=== PATIENT | female | born 1975 | race Caucasian/White ===

== ENCOUNTER 2022-12-25 16:40 | Observation (INO) ==
[2022-12-25] MEDS ORDERED: LABETALOL HCL IV 5 MG/ML 20ML IV STA (16:51)
[2022-12-25] MEDS ORDERED: SODIUM CHLORIDE 0.9% 1000ML 1,000 ML IV STA (16:51)
--- NOTE | 2022-12-25 16:56 | Emergency Department Note ---
Impression & Plan Pre-eclampsia in period ED Provider Note HISTORY OF PRESENT ILLNESS: Patient is a 47-year-old female presenting with hypertension. Patient had a vaginal delivery on 12/19/2022 with [facility] obstetric[facility]. She had had elevated blood pressure readings postdelivery and was given magnesium for seizure prophylaxis. She was never started on any blood pressure medications. She did blood pressure check at OB clinic today and it was found to be elevated and she was referred to the emergency department for further evaluation. Patient reports that she was doing well prior to discharge in the hospital, but for the last few days since being home her blood pressure readings have been elevated. She went to her primary doctor's office 2 days ago and was instructed to follow-up with OB. She had a blood pressure check with OB today and was found to be elevated and was referred to the emergency department. Patient states she has been having a "whooshing" sensation in her ears. Reports bilateral lower extremity edema ongoing for the last week. Denies any chest pain, shortness of breath, nausea or vomiting. Denies any abdominal pain. Reports some trace vaginal spotting but no heavy bleeding or discharge ROS: as above PHYSICAL EXAM: Constitutional: Patient appears in no acute distress. HENT: Head: Normocephalic and atraumatic. Eyes: EOMI, PERRL Mouth/Throat: Mucous membranes moist. Neck: Trachea midline. Neck supple. Cardiovascular: RRR, No murmurs, rubs or gallops. Intact distal pulses. Pulmonary/Chest: No respiratory distress. Breath sounds clear and equal bilaterally. No wheezes or rales. Abdominal: BS +. Abdomen soft, no tenderness, rebound or guarding. Musculoskeletal: No tenderness or deformity noted. Trace non-pitting edema bilaterally Skin: Warm and dry. No rash, erythema, pallor or cyanosis Psychiatric: Appropriate mood and affect for situation. Neurological: Alert and keenly responsive. CN II-XII grossly intact, moving all extremities equally and fully. MDM: - Vitals signs showed hypertension and tachycardia. - History obtained via patient. Patient presents with elevated blood pressure. Patient reports she just gave a week ago. She had high blood pressure and was discharged on magnesium. She reports she had multiple blood pressure checks and went today was noted to be hypertensive and was sent to the ER for further evaluation. She reports no chest pain or shortness of breath. Denies any recent fevers - Chronic conditions affecting care: none - Differential diagnoses include, but are not limited to: preeclampsia; anemia; electrolyte abnormality; ACS - Order placed for continuous cardiac monitoring. At this time, monitor showed rate of 90 bpm with normal sinus rhythm, per my interpretation. - External medical records reviewed. Patient's [facility] documentation was reviewed. During her inpatient hospital stay she was noted to have elevated AST and ALT. She was not started on any antihypertensives postdelivery. She had a blood pressure check today in clinic and was found to be 140s over 80s and was referred to the emergency department for further evaluation - EKG reviewed by myself showed normal sinus rhythm. Rate tachycardic at 105 bpm. QTc 438. No acute ischemic changes - Laboratory workup interpreted by myself showed normal WBC; anemia (Hgb 8.2 - w as 7.8 on 12/20/22); stable electrolytes other than hypocalcemia (Ca 8.1); normal creatinine; normal troponin; slightly elevated ALT (66). - Labs from 12/23/2022 reviewed and patient had transaminitis - AST 163; ALT 160. - UA negative for infection. Noted to have blood. - Patient given 1L NS and 10 mg IV labetalol. Multiple repeat blood pressures down to 120s systolic. - Discussed case with [facility] OB environmental protection officer. Will come and evaluate patient. Plan to admit to OB for further monitoring. - Patient admitted to [facility] OB service for further evaluation and management. ASSESSMENT AND PLAN: Diagnosis: preeclampsia Plan: admit Past Med/Surg History Social History Smoking Status: Never smoker Feels Safe at Home: Yes Allergies Allergies Allergy/AdvReac Type Severity Reaction Status Date / Time No Known Allergies Allergy Mild Unverified 03/11/10 07:59 Home Meds Home Medications Medication Instructions Recorded Confirmed No Known Home Medications 12/25/22 12/25/22 Results & Data (ED) Vital Signs Vital Signs - 24 hr 12/25/22 16:47 12/25/22 17:13 12/25/22 17:06 Pulse Rate 114 H 94 H 110 H Pulse Rate from SpO2 Sensor Respiratory Rate 15 14 Blood Pressure 170/109 H 143/84 H 176/107 H Blood Pressure Mean 129 130 Pulse Oximetry 100 100 Oxygen Delivery Method Room Air Room Air Sepsis Recent Fever Within 48 Hours No Sepsis New/Unexplained Change in Mental Status No Sepsis Action Taken by Nursing No Action Required 12/25/22 17:19 12/25/22 17:14 12/25/22 17:20 Pulse Rate 103 H 99 H 87 Pulse Rate from SpO2 Sensor Respiratory Rate 20 20 Blood Pressure 143/84 H 128/77 Blood Pressure Mean 103 94 Pulse Oximetry 99 100 Oxygen Delivery Method Room Air Room Air Sepsis Recent Fever Within 48 Hours Sepsis New/Unexplained Change in Mental Status Sepsis Action Taken by Nursing 12/25/22 17:34 12/25/22 17:34 12/25/22 17:45 Pulse Rate 85 85 84 Pulse Rate from SpO2 Sensor Respiratory Rate 24 12 Blood Pressure 125/82 125/82 123/76 Blood Pressure Mean 96 91 Pulse Oximetry 98 100 Oxygen Delivery Method Room Air Room Air Sepsis Recent Fever Within 48 Hours Sepsis New/Unexplained Change in Mental Status Sepsis Action Taken by Nursing 12/25/22 17:59 12/25/22 18:00 12/25/22 18:30 Pulse Rate 90 89 89 Pulse Rate from SpO2 Sensor 83 Respiratory Rate 29 H 21 20 Blood Pressure 128/80 123/77 Blood Pressure Mean 99 92 Pulse Oximetry 98 100 100 Oxygen Delivery Method Room Air Room Air Sepsis Recent Fever Within 48 Hours Sepsis New/Unexplained Change in Mental Status Sepsis Action Taken by Nursing 12/25/22 19:00 12/25/22 19:30 12/25/22 20:00 Pulse Rate 90 97 H 91 H Pulse Rate from SpO2 Sensor Respiratory Rate 24 27 H 18 Blood Pressure 140/88 149/94 H 135/84 Blood Pressure Mean 105 112 101 Pulse Oximetry 97 99 99 Oxygen Delivery Method Room Air Room Air Room Air Sepsis Recent Fever Within 48 Hours Sepsis New/Unexplained Change in Mental Status Sepsis Action Taken by Nursing Laboratory Data 12/25/22 17:07 12/25/22 17:07 Lab Results 12/25/22 12/25/22 12/25/22 Range/Units 17:07 17:07 17:22 WBC 9.71 (4.8-10.8) K/ul RBC 2.41 L (4.20-5.40) M/uL Hgb 8.2 L (12.0-16.0) g/dl Hct 24.3 L (37.0-47.0) % MCV 100.8 H (80.0-100.0) fL MCH 34.0 (25.0-34.0) pg MCHC 33.7 (32.0-36.0) g/dL RDW Std Deviation 51.5 H (36.4-46.3) fL RDW Coeff of Micheal 14.6 H (11.5-14.5) % Plt Count 390 (130-400) K/uL MPV 9.5 (9.4-12.4) fL Immature Gran % (Auto) 4.8 % Neut % (Auto) 58.5 % Lymph % (Auto) 24.9 % [place] % (Auto) 9.9 % Eos % (Auto) 1.3 % Baso % (Auto) 0.6 % Neut # (Auto) 5.67 (1.40-6.50) K/uL Lymph # (Auto) 2.42 (1.2-3.4) K/uL [place] # (Auto) 0.96 H (0.11-0.59) K/uL Eos # (Auto) 0.13 (0-0.50) K/uL Baso # (Auto) 0.06 (0-0.2) K/uL Immature Gran # (Auto) 0.47 H (0.01-0.20) K/uL Absolute Nucleated RBC 0.08 (0-0.12) K/uL Nucleated RBC % (auto) 0.8 % Sodium 139 (136-145) mmol/L Potassium 3.8 (3.5-5.1) mmol/L Chloride 109 H (98-107) mmol/L Carbon Dioxide 23 (21-32) mmol/L Anion Gap 7 (3-11) BUN 14 (6-23) mg/dl Creatinine 0.78 (0.6-1.2) mg/dl Est Cr Clr Drug Dosing Not Reportable Est GFR ( Amer) 106.4 ml/min Est GFR (Non-Af Amer) 91.8 ml/min BUN/Creatinine Ratio 17.9 (10-20) Glucose 126 H (70-99(Fasting)) mg/dl Calcium 8.1 L (8.6-10.3) mg/dl Magnesium 1.9 (1.7-2.4) mg/dl Total Bilirubin 0.3 (0.2-1.0) mg/dl AST 35 (13-39) U/L ALT 66 H (7-52) U/L Alkaline Phosphatase 114 H (34-104) U/L Troponin I High Sens 7.8 (0-14) pg/ml Total Protein 6.1 (6.0-8.3) gm/dl Albumin 3.4 (3.4-5.0) gm/dl Globulin 2.7 (2.5-4.0) gm/dl Albumin/Globulin Ratio 1.3 (0.9-2) Urine Color Urine Appearance (Clear) Urine pH (4.5-7.5) Ur Specific [place] (1.000-1.030) Urine Protein (Negative) Urine Glucose (UA) (Negative) Urine Ketones (Negative) Urine Blood (Negative) Urine Nitrite (Negative) Urine Bilirubin (Negative) Urine Urobilinogen (Negative) Ur Leukocyte Esterase (Negative) Urine WBC (Auto) (0-5) /hpf Urine RBC (Auto) (0-4) /hpf U Hyaline Cast (Auto) (0-5) /lpf U Epithel Cells (Auto) (0-5) /lpf Urine Bacteria (Auto) (Negative) SARS-CoV-2, RNA, NAAT NEGATIVE (NEGATIVE) 12/25/22 Range/Units 17:33 WBC (4.8-10.8) K/ul RBC (4.20-5.40) M/uL Hgb (12.0-16.0) g/dl Hct (37.0-47.0) % MCV (80.0-100.0) fL MCH (25.0-34.0) pg MCHC (32.0-36.0) g/dL RDW Std Deviation (36.4-46.3) fL RDW Coeff of Micheal (11.5-14.5) % Plt Count (130-400) K/uL MPV (9.4-12.4) fL Immature Gran % (Auto) % Neut % (Auto) % Lymph % (Auto) % [place] % (Auto) % Eos % (Auto) % Baso % (Auto) % Neut # (Auto) (1.40-6.50) K/uL Lymph # (Auto) (1.2-3.4) K/uL [place] # (Auto) (0.11-0.59) K/uL Eos # (Auto) (0-0.50) K/uL Baso # (Auto) (0-0.2) K/uL Immature Gran # (Auto) (0.01-0.20) K/uL Absolute Nucleated RBC (0-0.12) K/uL Nucleated RBC % (auto) % Sodium (136-145) mmol/L Potassium (3.5-5.1) mmol/L Chloride (98-107) mmol/L Carbon Dioxide (21-32) mmol/L Anion Gap (3-11) BUN (6-23) mg/dl Creatinine (0.6-1.2) mg/dl Est Cr Clr Drug Dosing Est GFR ( Amer) ml/min Est GFR (Non-Af Amer) ml/min BUN/Creatinine Ratio (10-20) Glucose (70-99(Fasting)) mg/dl Calcium (8.6-10.3) mg/dl Magnesium (1.7-2.4) mg/dl Total Bilirubin (0.2-1.0) mg/dl AST (13-39) U/L ALT (7-52) U/L Alkaline Phosphatase (34-104) U/L Troponin I High Sens (0-14) pg/ml Total Protein (6.0-8.3) gm/dl Albumin (3.4-5.0) gm/dl Globulin (2.5-4.0) gm/dl Albumin/Globulin Ratio (0.9-2) Urine Color Yellow Urine Appearance Clear (Clear) Urine pH 6.0 (4.5-7.5) Ur Specific [place] 1.018 (1.000-1.030) Urine Protein Negative (Negative) Urine Glucose (UA) Negative (Negative) Urine Ketones Negative (Negative) Urine Blood 3+ H (Negative) Urine Nitrite Negative (Negative) Urine Bilirubin Negative (Negative) Urine Urobilinogen Negative (Negative) Ur Leukocyte Esterase Trace H (Negative) Urine WBC (Auto) 1-5 (0-5) /hpf Urine RBC (Auto) >30 H (0-4) /hpf U Hyaline Cast (Auto) 1-5 (0-5) /lpf U Epithel Cells (Auto) 5-10 H (0-5) /lpf Urine Bacteria (Auto) Negative (Negative) SARS-CoV-2, RNA, NAAT (NEGATIVE) Administered Medications Discontinued Medications Sodium Chloride (Nss 1000ml) 1,000 mls @ 999 mls/hr IV .Q1H1M STA Stop: 12/25/22 17:51 Last Infusion: 12/25/22 18:14 Dose: 0 mls/hr Documented By: Admin: 12/25/22 17:13 Dose: 999 mls/hr Documented By: ANNABELLE Labetalol HCl (Labetalol Hcl Iv 5 Mg/Ml 20ml) 10 mg IV NOW STA Stop: 12/25/22 16:52 Last Admin: 12/25/22 17:13 Dose: 10 mg Documented By: ANNABELLE Co-signed By: CELY Discharge Plan Visit Data Chief Complaint: Abnormal Labs/Diagnostic Testing Stated Complaint: REF BY DOC,REDO BLOOD WORK ED Provider: Janina Yañez Discharge Problem: Pre-eclampsia in period Forms Stand Alone Forms: [facility] Prescriptions Prescriptions: No Action No Known Home Medications Referrals Referrals: Chris Mcmanus MD [Physician] -
[2022-12-25 17:34] LABS: Basophils # (auto) 0.06 K/uL (0-0.2); Basophils % (auto) 0.6 %; Eosinophils # (auto) 0.13 K/uL (0-0.50); Eosinophils % (auto) 1.3 %; Hematocrit (blood only) 24.3 % (37.0-47.0); Hemoglobin 8.2 g/dl (12.0-16.0); Immature Granulocytes # (auto) 0.47 K/uL (0.01-0.20); Immature Granulocytes % (auto) 4.8 %; Lymphocytes # (auto) 2.42 K/uL (1.2-3.4); Lymphocytes % (auto) 24.9 %; Mean Corpuscular Hgb Conc 33.7 g/dL (32.0-36.0); Mean Corpuscular Volume 100.8 fL (80.0-100.0); Mean Platelet Volume 9.5 fL (9.4-12.4); Monocytes # (auto) 0.96 K/uL (0.11-0.59); Monocytes % (auto) 9.9 %; Neutrophils # (auto) 5.67 K/uL (1.40-6.50); Neutrophils % (auto) 58.5 %; Nucleated RBC # (auto) 0.08 K/uL (0-0.12); Nucleated RBC % (auto) 0.8 %; Platelet Count 390 K/uL (130-400); RDW Coefficient of Variation 14.6 % (11.5-14.5); RDW Standard Deviation 51.5 fL (36.4-46.3); Red Blood Count 2.41 M/uL (4.20-5.40); White Blood Count 9.71 K/ul (4.8-10.8)
[2022-12-25 17:41] LABS: Alanine Aminotransferase 66 U/L (7-52); Albumin Globulin Ratio 1.3 (0.9-2); Albumin Level 3.4 gm/dl (3.4-5.0); Alkaline Phosphatase 114 U/L (34-104); Anion Gap 7 (3-11); Aspartate Aminotransferase 35 U/L (13-39); BUN Creatinine Ratio 17.9 (10-20); Bilirubin,Total 0.3 mg/dl (0.2-1.0); Blood Urea Nitrogen 14 mg/dl (6-23); Calcium 8.1 mg/dl (8.6-10.3); Carbon Dioxide 23 mmol/L (21-32); Chloride 109 mmol/L (98-107); Est GFR (African American) 106.4 ml/min; Est GFR (Non-African American) 91.8 ml/min; Globulin 2.7 gm/dl (2.5-4.0); Glucose 126 mg/dl (70-99(Fasting)); Magnesium 1.9 mg/dl (1.7-2.4); Potassium 3.8 mmol/L (3.5-5.1); Sodium 139 mmol/L (136-145); Total Protein 6.1 gm/dl (6.0-8.3)
[2022-12-25 17:46] LABS: Troponin I High Sensitivity 7.8 pg/ml (0-14)
[2022-12-25 17:53] LABS: Appearance Urine Clear (Clear); Bacteria Urine Automated Negative (Negative); Bilirubin Urine Negative (Negative); Blood Urine 3+ (Negative); Color Urine Yellow; Glucose Urine UA Negative (Negative); Ketones Urine Negative (Negative); Leukocyte Esterase Urine Trace (Negative); Nitrite Urine Negative (Negative); Protein Urine Negative (Negative); RBC Urine Automated >30 /hpf (0-4); Specific Gravity Urine 1.018 (1.000-1.030); Urobilinogen Urine Negative (Negative)
[2022-12-25] MEDS ORDERED: LIDOCAINE 1% LOCAL 20 ML VIAL INFIL PRN (19:53)
[2022-12-25] MEDS ORDERED: LACTATED RINGER'S 1,000 ML IV PRN (19:56)
--- NOTE | 2022-12-25 20:26 | History & Physical Report ---
Date of Service December 25, 2022 Assessment & Plan (1) Preeclampsia: Plan: 1. Preeclampsia. diagnosed and treated with magnesium on 12/19/22. [facility] labs today are unremarkable except for slight elevation of ALT. Patient has no protein in urine today. . Patient is seen in the emergency room today with headaches and elevated blood pressures which have improved with IV labetalol. I have therefore offered patient admission and observation for 24 hours to start on labetalol p.o. meds and monitor blood pressures Patient has agreed to plan and treatment Plan as above History of Present Illness Chief Complaint: Headache Primary Care Provider: Sabino Benites DO This is a 47-year-old 2 para 2 who delivered on December 19 2022 at [facility]. Patient went down to [place] for scheduled induction of labor for attempted vaginal after the . On day of admission she was found to have elevated blood pressures. She was worked up and diagnosed with preeclampsia. He received treatment for preeclampsia including magnesium f or 24 hours. Patient delivered vaginally and was discharged home on 12/21/2022. Patient reports post delivery blood pressure was improved and was taken off magnesium and labs improved as well and was discharged home on no medications for her blood pressure. Patient reports headaches in the last 3 days since she has been home. She reports a throbbing headache. No nausea or vomiting no right upper quadrant pain or visual changes. On December 23 patient was seen by primary care physician blood pressures were elevated and so primary care physician contacted OB on-call. Labs were normal so patient was discharged home scheduled for office on 12/25/2022. Today in the office patient was seen and sent to the emergency room emergency room she was seen by the ED physician. On arrival to the emergency room her blood pressures were in the 170s over 110s she received IV labetalol labetalol 10 mg. Blood pressures improved to 140s over 90s. CBC and complete chemistries are ordered and reviewed in the emergency room today. Patient has minimally elevated ALT.the rest of her preeclamptic labs are normal including no protein in the urine. Past medical history allergies social family history is reviewed. Allergies Allergy/AdvReac Type Severity Reaction Status Date / Time No Known Allergies Allergy Mild Unverified 03/11/10 07:59 Home Medications Medication Instructions Recorded Confirmed Type No Known Home Medications 12/25/22 12/25/22 History Past Med/Surg History Social History Smoking Status: Never smoker Feels Safe at Home: Yes Results & Data Results & Data Vital Signs (Past 12 Hours) Vital Signs Pulse Resp BP Pulse Ox O2 Del Method 12/25/22 19:30 97 H 27 H 149/94 H 99 Room Air 12/25/22 19:00 90 24 140/88 97 Room Air 12/25/22 18:30 89 20 123/77 100 Room Air 12/25/22 18:00 89 21 128/80 100 Room Air 12/25/22 17:59 90 29 H 98 12/25/22 17:45 84 12 123/76 100 Room Air 12/25/22 17:34 85 24 125/82 98 Room Air 12/25/22 17:34 85 125/82 12/25/22 17:20 87 20 128/77 100 Room Air 12/25/22 17:14 99 H 20 143/84 H 99 Room Air 12/25/22 17:19 103 H 12/25/22 17:06 110 H 14 176/107 H 100 Room Air 12/25/22 17:13 94 H 143/84 H 12/25/22 16:47 114 H 15 170/109 H 100 Room Air Code Status & VTE Plan VTE Prophylaxis Plan VTE Prophylaxis will be ordered: Yes
[2022-12-25] MEDS: LABETALOL HCL 100 MG TAB PO SCH (21:54)
[2022-12-25] MEDS: IBUPROFEN 600 MG TAB PO PRN (22:05)
[2022-12-26 06:12] LABS: Hematocrit (blood only) 21.7 % (37.0-47.0); Hemoglobin 7.4 g/dl (12.0-16.0); Mean Corpuscular Hemoglobin 33.9 pg (25.0-34.0); Mean Corpuscular Hgb Conc 34.1 g/dL (32.0-36.0); Mean Corpuscular Volume 99.5 fL (80.0-100.0); Mean Platelet Volume 9.3 fL (9.4-12.4); Nucleated RBC # (auto) 0.06 K/uL (0-0.12); Nucleated RBC % (auto) 0.9 %; Platelet Count 352 K/uL (130-400); RDW Coefficient of Variation 15.3 % (11.5-14.5); RDW Standard Deviation 52.8 fL (36.4-46.3); Red Blood Count 2.18 M/uL (4.20-5.40); White Blood Count 6.98 K/ul (4.8-10.8)
[2022-12-26] MEDS: IBUPROFEN 600 MG TAB PO PRN (06:18)
[2022-12-26 06:29] LABS: Alanine Aminotransferase 47 U/L (7-52); Albumin Globulin Ratio 1.3 (0.9-2); Alkaline Phosphatase 109 U/L (34-104); Anion Gap 4 (3-11); Aspartate Aminotransferase 24 U/L (13-39); Bilirubin,Total 0.3 mg/dl (0.2-1.0); Blood Urea Nitrogen 12 mg/dl (6-23); Calcium 7.8 mg/dl (8.6-10.3); Carbon Dioxide 23 mmol/L (21-32); Chloride 113 mmol/L (98-107); Est GFR (African American) 125.6 ml/min; Est GFR (Non-African American) 108.3 ml/min; Globulin 2.4 gm/dl (2.5-4.0); Glucose 70 mg/dl (70-99(Fasting)); Sodium 140 mmol/L (136-145); Total Protein 5.4 gm/dl (6.0-8.3)
[2022-12-26 06:47] LABS: Basophils # (auto) 0.05 K/uL (0-0.2); Basophils % (auto) 0.7 %; Eosinophils % (auto) 1.4 %; Immature Granulocytes # (auto) 0.36 K/uL (0.01-0.20); Immature Granulocytes % (auto) 5.2 %; Lymphocytes # (auto) 1.89 K/uL (1.2-3.4); Lymphocytes % (auto) 27.1 %; Monocytes # (auto) 0.81 K/uL (0.11-0.59); Monocytes % (auto) 11.6 %; Neutrophils # (auto) 3.77 K/uL (1.40-6.50); Polychromasia 1+
--- NOTE | 2022-12-26 06:54 | Obstetrical Progress Note ---
Date of Service December 26, 2022 Assessment & Plan (1) Preeclampsia: Plan: Pt doing well Improved headache stable BP on labetalol 100mg BID LFT is nml Admission and Anticipated Discharge Date Admission Date: December 25, 2022 Results & Data Vital Signs (Past 12 Hours) Vital Signs Temp Pulse Pulse Pulse Resp BP BP 12/26/22 06:15 18 12/26/22 03:35 16 12/25/22 22:30 18 12/25/22 22:08 37.0 C 88 20 183/86 H 12/26/22 06:38 80 138/66 12/26/22 05:26 70 130/60 12/26/22 04:26 73 122/56 L 12/26/22 03:35 16 12/26/22 03:35 37.1 C 16 12/26/22 03:26 81 103/51 L 12/26/22 02:26 88 107/52 L 12/26/22 01:26 90 104/52 L 12/26/22 00:33 83 122/59 L 12/26/22 00:26 84 159/53 H 12/25/22 23:25 83 120/68 12/25/22 22:28 75 140/80 12/25/22 21:50 37.0 C 88 20 183/86 H 12/25/22 21:13 86 16 153/102 H 12/25/22 20:00 91 H 18 135/84 12/25/22 19:30 97 H 27 H 149/94 H 12/25/22 19:00 90 24 140/88 Pulse Ox O2 Del Method 12/26/22 06:15 12/26/22 03:35 12/25/22 22:30 12/25/22 22:08 Room Air 12/26/22 06:38 12/26/22 05:26 12/26/22 04:26 12/26/22 03:35 12/26/22 03:35 12/26/22 03:26 12/26/22 02:26 12/26/22 01:26 12/26/22 00:33 12/26/22 00:26 12/25/22 23:25 12/25/22 22:28 12/25/22 21:50 12/25/22 21:13 98 Room Air 12/25/22 20:00 99 Room Air 12/25/22 19:30 99 Room Air 12/25/22 19:00 97 Room Air
--- NOTE | 2022-12-26 07:00 | Discharge Summary ---
Date of Service December 26, 2022 Admission HPI Per Admitting Provider This is a 47-year-old 2 para 2 who delivered on December 19 2022 at [facility]. Patient went down to [place] for scheduled induction of labor for attempted vaginal after the . On day of admission she was found to have elevated blood pressures. She was worked up and diagnosed with preeclampsia. He received treatment for preeclampsia including magnesium for 24 hours. Patient delivered vaginally and was discharged home on 12/21/2022. Patient reports post delivery blood pressure was improved and was taken off magnesium and labs improved as well and was discharged home on no medications for her blood pressure. Patient reports headaches in the last 3 days since she has been home. She reports a throbbing headache. No nausea or vomiting no right upper quadrant pain or visual changes. On December 23 patient was seen by primary care physician blood pressures were elevated and so primary care physician contacted OB on-call. Labs were normal so patient was discharged home scheduled for office on 12/25/2022. Today in the office patient was seen and sent to the emergency room emergency room she was seen by the ED physician. On arrival to the emergency room her blood pressures were in the 170s over 110s she received IV labetalol labetalol 10 mg. Blood pressures improved to 140s over 90s. CBC and complete chemistries are ordered and reviewed in the emergency room today. Patient has minimally elevated ALT.the rest of her preeclamptic labs are normal including no protein in the urine. Past medical history allergies social family history is reviewed. Discharge Data Consultations 12/25/22 20:46 ED Decision to Admit Stat Hospital Course (1) Preeclampsia: d/c home on labetelol, Iron tabs and colace Plan Post op course was unremarkable and pt is discharges home in stable condition. Discharge instructions including medications,diet, activity and follow up appointments are reviewed with pt. Discharge Instructions Post op course was unremarkable and pt is discharges home in stable condition. Discharge instructions including medications,diet, activity and follow up appointments are reviewed with pt.
[2022-12-26] MEDS: LABETALOL HCL 100 MG TAB PO SCH (09:03)
[2022-12-26] MEDS ORDERED: DOCUSATE SODIUM 100 MG CAP PO SCH (09:15)
[2022-12-26] MEDS ORDERED: FERROUS SULFATE 325 MG TAB PO ONE (10:08)
[2022-12-26] MEDS ORDERED: FERROUS SULFATE 325 MG TAB PO SCH (17:00)
--- NOTE | 2022-12-26 17:48 | Electrocardiogram Report ---
Test Reason : Blood Pressure : / mmHG Vent. Rate : 105 BPM Atrial Rate : 105 BPM P-R Int : 164 ms QRS Dur : 076 ms QT Int : 332 ms P-R-T Axes : 046 051 031 degrees QTc Int : 438 ms Sinus tachycardia Otherwise normal ECG No previous ECGs available Confirmed by Gerardo Deal ([id number]) on 12/26/2022 5:48:08 PM Referred By: Sabino Benites Confirmed By:Julius Deal
[2022-12-26] MEDS ORDERED: LABETALOL HCL 100 MG TAB PO SCH ×2 (21:00)
== END 2022-12-26 12:00 | disposition home or self-care (01) | DRG 776 ==
LOC: ED 16:40 → INTOOBSV 20:10 → 4S1 20:10
DX: O14.95 Unspecified pre-eclampsia, complicating the puerperium